=== PATIENT | male | born 1990 | race African-American/Black ===

== ENCOUNTER 2019-01-18 19:22 | Emergency (ER) | payer OTHER ==
[~2019-01-18] VITALS: Ht 185.4 cm; Wt 90.3 kg
[~2019-01-18 19:22] MED LIST: AMOXICILLIN 50500 MG PO; IBUPROFEN 800800 M1 PO
[2019-01-18 20:19] LABS: URINE BILIRUBIN NEGATIVE (Negative); URINE BLOOD 2+ (Negative); URINE CLARITY CLEAR; URINE COLOR YELLOW; URINE GLUCOSE-RANDOM* NEGATIVE (Negative); URINE KETONES NEGATIVE (Negative); URINE LEUKOCYTES-REFLEX NEGATIVE (Negative); URINE NITRITE-REFLEX NEGATIVE (Negative); URINE PROTEIN (DIPSTICK) NEGATIVE (Negative); URINE UROBILINOGEN 0.2 E.U./dl (0.2-1.0)
[2019-01-18 20:39] LABS: URINE RBC 3-10 Few /HPF (0-2)
[2019-01-18 20:40] LABS: AMORPHOUS URATES Moderate /LPF (None Seen); BACTERIA-REFLEX 1-9 Few /HPF (None Seen); CASTS None Seen /LPF (None Seen); SQUAMOUS 0-3 Few /LPF (0-3); URINE WBC-REFLEX None Seen /HPF (0-5)
[2019-01-18 21:41] LABS: CALCIUM 9.4 mg/dL (8.5-10.1); CREATININE 1.2 mg/dL (0.7-1.3); POTASSIUM 4.2 mmol/L (3.5-5.1)
[2019-01-18 22:02] VITALS: BP 133/82
== END 2019-01-18 22:02 | disposition home or self-care (01) ==
LOC: ER 19:22
PROVIDERS: Emergency Medicine; Physician Assistant
DX: R31.9 Hematuria, unspecified (principal); R30.0 Dysuria

== ENCOUNTER 2020-08-18 20:45 | Emergency (ER) | payer OTHER ==
[~2020-08-18] VITALS: Ht 185.4 cm; Wt 86.2 kg
[2020-08-18 21:28] LABS: BASOPHILS 0.7 % (0.0-2.0); HEMATOCRIT 47.5 % (42.0-52.0); HEMOGLOBIN 15.7 gm/dL (14.0-18.0); LYMPHOCYTES 37.8 % (24.0-44.0); MCH 28.8 pg (26.0-34.0); MCV 87.3 fL (80.0-100.0); MONOCYTES 5.2 % (1.0-8.0); PLATELET COUNT 254 thou/uL (150-400); POLYS 55.3 % (36.0-66.0); RBC 5.44 mil/uL (4.50-6.00); RDW 13.9 % (10.5-14.5); WBC 7.3 thou/uL (4.0-11.0)
[2020-08-18 21:34] LABS: ANION GAP 9 mmol/L (7-16); BUN 11 mg/dL (7-18); CALCIUM 9.6 mg/dL (8.5-10.1); CHLORIDE 105 mmol/L (98-107); CO2 29 mmol/L (21-32); CREATININE 1.3 mg/dL (0.7-1.3); GLUCOSE 127 mg/dL (74-106); POTASSIUM 3.7 mmol/L (3.5-5.1); SODIUM 143 mmol/L (136-145)
[2020-08-18 21:44] LABS: ALBUMIN 4.1 g/dL (3.4-5.0); SGOT 16 U/L (15-37); SGPT 21 U/L (16-63); TOTAL BILIRUBIN 0.4 mg/dL (0.2-1.0); TROPONIN-I <0.06 ng/mL (<0.06)
[2020-08-18 23:36] VITALS: BP 123/76
--- NOTE | 2020-08-19 08:56 | EKG ---
[place] [address] [facility] [employer] [address] ELECTROCARDIOGRAM REPORT Name: LUIS BETANCOURT JR [facility] [id number] Admission: 08/18/20 Attend Phys: Discharge: 08/18/20 Date of : [birth year] Report #: [id number] [facility] ED Test Date: 2020-08-18 Test Time: 20:47:16 Pat Name: LUIS BETANCOURT Department: Room: Gender: Assurance Specialist: WILL : 1990 Requested By: John Valentine Order Number: [id number] MD: Matt Steel Measurements Intervals [place] Rate: 64 P: 19 IN: 154 QRS: 52 QRSD: 86 T: 108 QT: 459 QTc: 474 Interpretive Statements Sinus rhythm Abnormal T, consider ischemia, lateral leads Baseline wander in lead(s) V1 No previous ECG available for comparison Electronically Signed On 08-19-2020 8:56:22 [employer] by Matt Steel [email or web address] <ELECTRONICALLY SIGNED> By: Matt Steel MD, [facility] 08/19/20 [id number] Matt Steel MD, FACC /EPI
--- NOTE | 2020-08-19 08:56 | EKG ---
[place] [address] [facility] [place] [employer] [place] [address] ELECTROCARDIOGRAM REPORT Name: LUIS BETANCOURT JR Room #: [facility]#: [id number] Admission: 08/18/20 Attend Phys: Discharge: 08/18/20 Date of : [birth year] Report #: [id number] [facility] ED Test Date: 2020-08-18 Test Time: 23:10:11 Pat Name: LUIS BETANCOURT Department: Room: Gender: M Network Consultant: ALBIN : 1990 Requested By: John Valentine Order Number: [id number] MD: Matt Steel Measurements Intervals [place] Rate: 56 P: 49 TN: 161 QRS: 43 QRSD: 87 T: 105 QT: 440 QTc: 425 Interpretive Statements Sinus rhythm Abnormal T, consider ischemia, lateral leads ST elev, probable normal early repol pattern Compared to ECG 08/18/2020 20:47:16 Myocardial infarct finding no longer present T-wave abnormality still present Possible ischemia still present ST (T wave) deviation still present Electronically Signed On 08-19-2020 8:56:39 [employer] by Matt Steel [email or web address] <ELECTRONICALLY SIGNED> By: Matt Steel MD, FACC 08/19/20 0856 09 09 Matt Steel MD, FACC /EPI
== END 2020-08-18 23:37 | disposition home or self-care (01) ==
LOC: ER 20:45
PROVIDERS: Emergency Medicine
DX: R07.89 Other chest pain (principal); R06.02 Shortness of breath